=== PATIENT | female | born 1995 | race Caucasian/White ===

== ENCOUNTER 2024-07-05 05:51 | Emergency (ER) | payer OTHER ==
[~2024-07-05] VITALS: Ht 157.5 cm; Wt 66.6 kg
[2024-07-05 05:55] VITALS: BP 109/68; TEMP 97; O2SAT 98
[2024-07-05] MEDS ORDERED: AMOX875T2 PO (09:36)
== END 2024-07-05 09:49 | disposition home or self-care (01) ==
LOC: M ED 05:51
DX: J00 Acute nasopharyngitis [common cold] (principal); H65.03 Acute serous otitis media, bilateral; Z79.2 Long term (current) use of antibiotics